=== PATIENT | female | born 1980 ===

== ENCOUNTER 2017-08-20 21:24 | Emergency (ER) | payer SELFPAY ==
[2017-08-20 21:32] VITALS: TEMP 97.7; O2SAT 99
[2017-08-20] MEDS ORDERED: Sodium Chloride 0.9% 1,000 ML IV STA (23:00)
[2017-08-20] MEDS ORDERED: Famotidine 20mg/50ml 20 MG/50 ML BAG IVPB ONE (23:29)
[2017-08-21 00:21] LABS: BASO # 0.1 K/uL (0.0-0.2); BASO % 0.7 % (0.0-2.0); EOS # 0.2 K/uL (0.0-0.7); EOS % 1.6 % (0.0-4.0); HEMOGLOBIN 12.6 g/dL (12.0-16.0); LYMPH # 3.5 K/uL (1.0-4.3); LYMPH % 35.1 % (20.0-40.0); MEAN CELL VOLUME 86.6 fl (81.0-99.0); MEAN CORPUSCULAR HEMOGLOBIN 28.6 pg (27.0-31.0); MEAN PLATELET VOLUME 8.7 fl (7.2-11.7); MONO # 0.8 K/uL (0.0-0.8); MONO % 7.6 % (0.0-10.0); NEUT # 5.5 K/uL (1.8-7.0); RBC 4.42 Mil/uL (3.80-5.20); RED CELL DISTRIBUTION WIDTH 14.2 % (11.5-14.5); WHITE BLOOD COUNT 9.9 K/uL (4.8-10.8)
[2017-08-21 00:25] LABS: ALBUMIN 3.8 g/dL (3.5-5.0); ALT/SGPT 35 U/L (9-52); AST/SGOT 23 U/L (14-36); BLOOD UREA NITROGEN 9 mg/dl (7-17); CALCIUM 9.1 mg/dL (8.4-10.2); GFR AFRICAN-AMERICAN > 60; GFR NON-AFRICAN AMERICAN > 60; LIPASE 108 U/L (23-300)
--- NOTE | 2017-08-21 01:20 | ED PDOC ---
HPI: Abdomen Chief Complaint (Provider): Abdominal Pain History Per: Patient History/Exam Limitations: no limitations Onset/Duration Of Symptoms: Days (x2 weeks) Current Symptoms Are (Timing): Still Present <Delmer Hedrick - Last Filed: 08/21/17 01:17> <Vanita Frazier PA-C - Last Filed: 08/21/17 01:55> Time Seen by Provider: 08/20/17 22:22 Chief Complaint (Nursing): Abdominal Pain Additional Complaint(s): 37 y/o female with no significant PMHx presenting for evaluation of abdominal pain x2 weeks. Patient states shes had gastritis for 2 weeks and describes it as epigastric abdominal pain and a feeling of gas in her stomach. Patient reports she did a home test 2 weeks ago which was positive. She states she hasnt seen an OBGYN regarding her and has received no care. Patient admits to nausea, but denies any vomiting, urinary symptoms, diarrhea, fever, or vaginal bleeding. (Delmer Hedrick) Past Medical History Reviewed: Historical Data, Nursing Documentation, Vital Signs - Medical History PMH: No Chronic Diseases Denies: Chronic Kidney Disease - Surgical History Surgical History: - Family History Family History: States: Unknown Family Hx - Social History Current smoker - smoking cessation education provided: No Alcohol: None Drugs: Denies <Delmer Hedrick - Last Filed: 08/21/17 01:17> <Vanita Frazier PA-C - Last Filed: 08/21/17 01:55> Vital Signs: Last Vital Signs Temp 97.7 F 08/20/17 21:30 Pulse 102 H 08/20/17 21:30 Resp 20 08/20/17 21:30 BP 120/76 08/20/17 21:30 Pulse Ox 99 08/21/17 01:23 - Home Medications Home Medications: Ambulatory Orders Medication Instructions Recorded Ibuprofen [Motrin] 600 mg PO Q6 PRN #20 tab 11/26/13 Ondansetron Hydrochloride 4 mg PO Q6 PRN #12 tab 11/26/13 Famotidine [Pepcid] 40 mg PO DAILY #20 tablet 08/21/17 Nitrofurantoin Macrocrystals 100 mg PO BID #20 cap 08/21/17 [Macrobid] - Allergies Allergies/Adverse Reactions: Allergies Allergy/AdvReac Type Severity Reaction Status Date / Time No Known Allergies Allergy Verified 08/20/17 21:30 Review of Systems ROS Statement: Except As Marked, All Systems Reviewed And Found Negative Constitutional: Negative for: Fever Gastrointestinal: Positive for: Nausea, Abdominal Pain. Negative for: Vomiting , Diarrhea Genitourinary Female: Negative for: Dysuria, Frequency, Incontinence, Vaginal Discharge, Vaginal Bleeding <Delmer Hedrick - Last Filed: 08/21/17 01:17> Physical Exam - Reviewed Nursing Documentation Reviewed: Yes Vital Signs Reviewed: Yes <Delmer Hedrick - Last Filed: 08/21/17 01:17> <Vanita Frazier PA-C - Last Filed: 08/21/17 01:55> - Physical Exam Comments: GENERAL APPEARANCE: Patient is awake, alert, oriented x 3, in no acute distress. SKIN: Warm, dry; (-) cyanosis. EYES: (-) conjunctival pallor, (-) scleral icterus. ENMT: Mucous membranes moist. NECK: (-) tenderness, (-) stiffness, (-) lymphadenopathy. CHEST AND RESPIRATORY: (-) rales, (-) rhonchi, (-) wheezes; breath sounds equal bilaterally. HEART AND CARDIOVASCULAR: (-) irregularity; (-) murmur, (-) gallop. ABDOMEN AND GI: (-) distention. Bowel sounds active; (+) tenderness in epigastric and superpubic regions. (-) guarding, (-) rebound, (-) palpable masses, (-) CVA tenderness. EXTREMITIES: (-) deformity, (-) edema, (+) distal pulses. NEURO AND PSYCH: Mental status as above; (-) focal findings. (Delmer Hedrick) - Laboratory Results Result Diagrams: 08/20/17 23:50 08/20/17 23:50 - ECG O2 Sat by Pulse Oximetry: 99 (RA) Pulse Ox Interpretation: Normal <Delmer Hedrick - Last Filed: 08/21/17 01:17> - Laboratory Results Result Diagrams: 08/20/17 23:50 08/20/17 23:50 <Vanita Frazier PA-C Last Filed: 08/21/17 01:55> Medical Decision Making <Zahira Hedrickam Fabian - Last Filed: 08/21/17 01:17> <Vanita Frazier PA-C - Last Filed: 08/21/17 01:55> Medical Decision Making: Plan: -Beta-HCG -CMP -Lipase -Urine -Urine dipstick -CBC -1LNS -Pepcid 20mg IVP -Tylenol 650mg PO -IV insertion -US OB Transvaginal -US Abdomen -Reevaluation ----- Scribe Attestation: Documented by Scott Fallon, acting as a scribe for Vanita Frazier PA-C. Provider Scribe Attestation: All medical record entries made by the Scribe were at my direction and personally dictated by me. I have reviewed the chart and agree that the record accurately reflects my personal performance of the history, physical exam, medical decision making, and the department course for this patient. I have also personally directed, reviewed, and agree with the discharge instructions and disposition. (Delmer Hedrick) US abd : FINDINGS: Liver: Unremarkable. No mass. No intrahepatic bile duct dilation. Gallbladder: The gallbladder is contracted. Evaluation for cholelithiasis is limited due to contracted status of the gallbladder. Correlate clinically. If clinically warranted consider repeat examination when the patient is n.p.o. Common bile duct: Measures 4 mm. Pancreas: Unremarkable as visualized. Right kidney: Unremarkable. No hydronephrosis. IMPRESSION: The gallbladder is contracted. Evaluation for cholelithiasis is limited due to contracted status of the gallbladder. Correlate clinically. If clinically warranted consider repeat examination when the patient is n.p.o. Dictated and Authenticated by: Emory Aguilera MD 08/21/2017 12:24 AM Eastern Time ([place] & [place]) US TV : FINDINGS: Gestation: Single intrauterine with fetus corresponding to gestational age of 6 weeks and 1 day. No heart rate is identified at this time. [place]-rump length is 0.7 cm. Yolk sac not visualized. Uterus/cervix: Cervix measures 4 cm. No myometrial mass. Ovaries: Unremarkable. Free fluid: No free fluid. IMPRESSION: Single intrauterine with fetus corresponding to gestational age of 6 weeks and 1 day. No heart rate is identified at this time.Differential diagnosis includes versus very early intrauterine . Advise serial beta HCG levels and follow up pelvic obstetrical ultrasound to assess for viability and exclude an ectopic . Dictated and Authenticated by: Emory Aguilera MD 08/21/2017 12:31 AM Eastern Time ([place] & [place]) (Vanita Frazier PA-C) Disposition <ThaniasaskiaDelmer Fabian - Last Filed: 08/21/17 01:17> - Patient ED Disposition Is Patient to be Admitted: No Counseled Patient/Family Regarding: Studies Performed, Diagnosis, Need For Followup, Rx Given - Disposition Disposition: Routine/Home Disposition Time: 01:30 <Vanita Frazier PA-C - Last Filed: 08/21/17 01:55> - Clinical Impression Clinical Impression: Dyspepsia, Abdominal pain during , UTI (urinary tract infection) - Disposition Referrals: [facility] [Outside] Condition: STABLE Additional Instructions: Thank you for letting us take care of you today. You were treated for dyspepsia , abdominal pain in , UTI. The emergency medical care you received today was directed at your acute symptoms. If you were prescribed any medication , please fill it and take as directed. It may take several days for your symptoms to resolve. Return to the Emergency Department if your symptoms worsen , do not improve, or if you have any other problems. Please call one of the physicians/clinics you have been referred to that are listed on the Patient Visit Information form that is included in your discharge packet. Bring any paperwork you were given at discharge with you along with any medications you are taking to your follow up visit. Our treatment cannot replace ongoing medical care by a primary care provider (PCP) outside of the emergency department. Thank you for allowing the [facility] [employer] team to be part of your care today. If you had a urine culture test done : We will call you regarding any positive results Prescriptions: Famotidine [Pepcid] 40 mg PO DAILY #20 tablet Nitrofurantoin Macrocrystals [Macrobid] 100 mg PO BID #20 cap Instructions: Urinary Tract Infections in Adults, Dyspepsia, Acute Abdomen ( Belly Pain), Adult (DC) Forms: [employer] (Citizen Of [place]) Print Language: [place]
[2017-08-21 02:12] VITALS: BP 116/65; PULSE 80; RESP 17
[2017-08-21 02:28] LABS: SQUAMOUS EPITHIAL 3 /hpf (0-5); URINE BACTERIA RARE (<OCC); URINE BILIRUBIN NEGATIVE (NEGATIVE); URINE BLOOD SMALL (NEGATIVE); URINE CLARITY CLOUDY (Clear); URINE COLOR YELLOW (YELLOW); URINE GLUCOSE (UA) NEG (Normal); URINE LEUKOCYTE ESTERASE LARGE Leu/uL (Negative); URINE PROTEIN NEGATIVE (NEGATIVE); URINE UROBILINOGEN 0.2-1.0 mg/dL (0.2-1.0)
--- NOTE | 2017-08-21 11:44 | US ---
HISTORY: epigastric pain COMPARISON: None. TECHNIQUE: Sonographic evaluation of the right upper quadrant of the abdomen. FINDINGS: LIVER: Measures 14.0 cm in length. Patent portal vein. Portal venous flow: Hepatopetal. Unremarkable echogenicity of the liver parenchyma. No mass. No intrahepatic bile duct dilatation. GALLBLADDER: Contracted. No gallstones. COMMON BILE DUCT: Measures 3.5 mm. No stones. No dilatation. PANCREAS: Obscured by overlying bowel gas. Non diagnostic assessment ofthe pancreas. RIGHT KIDNEY: Measures 4.0 x 9.6 cm in length. Normal echogenicity. No calculus, mass, or hydronephrosis. AORTA: No aneurysmal dilatation. IVC: Unremarkable. OTHER FINDINGS: None . IMPRESSION: No significant or acute findings to account for/ related to the clinical presentation. Concordant findings provided by [facility]
--- NOTE | 2017-08-21 11:55 | US ---
HISTORY: Abdominal pain LMP 06/19/2017. Beta HCG level pending COMPARISON: None available. TECHNIQUE: Standard protocol for this study/examination. FINDINGS: UTERUS: Measures 5.4 x 5.6 x 10.6 cm. Normal in size and appearance. No fibroid or other mass lesion seen. GESTATION: Nonviable intrauterine gestation. [place]-rump length 0.68 cm corresponds to gestational age of 6 weeks 4 days. Gestational sac measurement 1.47 cm corresponds to gestational age 5 weeks 5 days. Cardiac activity is not documented. Yolk sac is not identified. CERVIX: Closed cervix 4 cm. RIGHT OVARY: Measures 1.7 x 1.8 x 2 cm. No solid mass. Normal flow. LEFT OVARY: Measures 1.2 x 1.3 x 2.4 cm. No solid mass. Normal flow. FREE FLUID: No significant free fluid noted. OTHER FINDINGS: None. IMPRESSION: Gestational sac and pole identified. Cardiac activity and yolk sac not identified. Unremarkable adnexa. Concordant results (preliminary interpretation) provided by [facility]. Procedure Completed: 23:39 Preliminary ([facility]) Report: Dictated and Authenticated: 00:31 Final Interpretation: 11:58.
== END 2017-08-21 02:44 | disposition home or self-care (01) ==
LOC: H.ER 21:24
DX: O23.41 Unspecified infection of urinary tract in pregnancy, first trimester (principal); Z3A.01 Less than 8 weeks gestation of pregnancy; K30 Functional dyspepsia
CPT/HCPCS: 76705; 76817; 80053; 81003; 81025; 83690; 84702; 85025; 87086; 96361; 96374; 99283; J7030

== ENCOUNTER 2017-08-24 19:52 | Emergency (ER) | payer SELFPAY ==
[2017-08-24 20:01] VITALS: O2SAT 100
[2017-08-24 23:16] LABS: BASO # 0.1 K/uL (0.0-0.2); BASO % 0.9 % (0.0-2.0); EOS # 0.1 K/uL (0.0-0.7); EOS % 1.1 % (0.0-4.0); HEMOGLOBIN 13.1 g/dL (12.0-16.0); LYMPH # 3.7 K/uL (1.0-4.3); LYMPH % 29.5 % (20.0-40.0); MEAN CELL VOLUME 86.6 fl (81.0-99.0); MEAN CORPUSCULAR HEMOGLOBIN 28.5 pg (27.0-31.0); MEAN CORPUSCULAR HGB CONC 32.9 g/dL (33.0-37.0); MONO # 0.8 K/uL (0.0-0.8); MONO % 6.7 % (0.0-10.0); NEUT # 7.8 K/uL (1.8-7.0); NEUT % 61.8 % (50.0-75.0); RBC 4.58 Mil/uL (3.80-5.20); RED CELL DISTRIBUTION WIDTH 14.2 % (11.5-14.5); WHITE BLOOD COUNT 12.6 K/uL (4.8-10.8)
--- NOTE | 2017-08-24 23:31 | ED PDOC ---
HPI: Female Pain Time Seen by Provider: 08/24/17 21:23 Chief Complaint (Nursing): Female Genitourinary Chief Complaint (Provider): Female Genitourinary History Per: Patient (Female Genitourinary) History/Exam Limitations: no limitations Onset/Duration Of Symptoms: Days (x2) Current Symptoms Are (Timing): Still Present Additional Complaint(s): 37 y/o female with a PMHx of and a history of presents to the ED complaining of vaginal bleeding for about two days and lower abdominal pain for about one week. Patient was last seen here on August 20. Patient reports she has an appointment with her PC ANALYST in [place] next Sunday. Patient is here on a three month vacation. PMD: None Provided : 3 Para: 2 Past Medical History Reviewed: Historical Data, Nursing Documentation, Vital Signs Vital Signs: Last Vital Signs Temp 98.1 F 08/24/17 19:59 Pulse 105 H 08/24/17 19:59 Resp 20 08/24/17 19:59 BP 129/86 08/24/17 19:59 Pulse Ox 100 08/24/17 19:59 - Medical History PMH: No Chronic Diseases Denies: Chronic Kidney Disease - Surgical History Surgical History: - Family History Family History: States: Unknown Family Hx - Social History Current smoker - smoking cessation education provided: No Alcohol: None Drugs: Denies - Home Medications Home Medications: Ambulatory Orders Medication Instructions Recorded Ibuprofen [Motrin] 600 mg PO Q6 PRN #20 tab 11/26/13 Ondansetron Hydrochloride 4 mg PO Q6 PRN #12 tab 11/26/13 Famotidine [Pepcid] 40 mg PO DAILY #20 tablet 08/21/17 Nitrofurantoin Macrocrystals 100 mg PO BID #20 cap 08/21/17 [Macrobid] - Allergies Allergies/Adverse Reactions: Allergies Allergy/AdvReac Type Severity Reaction Status Date / Time No Known Allergies Allergy Verified 08/24/17 19:59 Review of Systems ROS Statement: Except As Marked, All Systems Reviewed And Found Negative Gastrointestinal: Positive for: Abdominal Pain (lower) Genitourinary Female: Positive for: Vaginal Bleeding Physical Exam - Reviewed Nursing Documentation Reviewed: Yes Vital Signs Reviewed: Yes - Physical Exam Appears: Positive for: No Acute Distress Head Exam: Positive for: ATRAUMATIC, NORMOCEPHALIC Skin: Positive for: Normal Color, Warm, Dry Eye Exam: Positive for: Normal appearance, EOMI, PERRL Neck: Positive for: Normal Cardiovascular/Chest: Positive for: Regular Rate, Rhythm. Negative for: Murmur Respiratory: Positive for: Normal Breath Sounds. Negative for: Respiratory Distress Gastrointestinal/Abdominal: Positive for: Normal Exam, Tenderness (suprapubic tend). Negative for: Guarding, Rebound Extremity: Positive for: Normal ROM Neurologic/Psych: Positive for: Alert, Oriented. Negative for: Motor/Sensory Deficits - Laboratory Results Result Diagrams: 08/24/17 23:09 - ECG O2 Sat by Pulse Oximetry: 100 (RA) Pulse Ox Interpretation: Normal Medical Decision Making Medical Decision Making: Time: 2156 Impression: Vaginal bleeding, , threatened Plan: -- ED Urine -- ED Urine Dipstick -- US OB Limited Time: 2308 Plan: -- ABO/RH Type -- Type and Screen -- Beta-HCG, Quantitative -- CMP -- CBC with differentials -- PTT -- Prothrombin Time Time: 2319 US OB PREG RESULTS FINDINGS: Gestation: No intrauterine gestation is identified. Uterus/cervix: The endometrial stripe is relatively homogeneous and measures 10 mm in thickness. Doppler imaging demonstrates no abnormal vascularity in the endometrial stripe. The cervix appears closed. Ovaries: The ovaries are normal in size and appearance. Doppler imaging demonstrates vascular flow in both ovaries. No adnexal mass is visualized. Free fluid: No pelvic free fluid is visualized. IMPRESSION: No intrauterine gestation is identified, consistent with interval . No evidence of retained products of conception. Thank you for allowing us to participate in the care of your patient. Dictated and Authenticated by: Renetta Espinoza MD 08/24/2017 11:20 PM Eastern Time ([place] & [place]) Scribe Attestation: Documented by Kellee Roberto acting as a scribe for Dr. Cayla Ayala MD. Provider Scribe Attestation: All medical record entries made by the Scribe were at my direction and personally dictated by me. I have reviewed the chart and agree that the record accurately reflects my personal performance of the history, physical exam, medical decision making, and the department course for this patient. I have also personally directed, reviewed, and agree with the discharge instructions and disposition. Disposition - Disposition
[2017-08-24 23:34] LABS: ALB/GLOB RATIO 1.2 (1.0-2.1); ALBUMIN 3.9 g/dL (3.5-5.0); ALT/SGPT 34 U/L (9-52); AST/SGOT 32 U/L (14-36); BLOOD UREA NITROGEN 12 mg/dl (7-17); GFR AFRICAN-AMERICAN > 60; GFR NON-AFRICAN AMERICAN > 60
[2017-08-25 00:01] LABS: PARTIAL THROMBOPLASTIN TIME 23.7 Seconds (25.6-37.1); PROTHROMBIN TIME 11.1 Seconds (9.8-13.1)
[2017-08-25 00:53] VITALS: BP 106/69; PULSE 87; RESP 16; TEMP 97.9
--- NOTE | 2017-08-25 09:38 | US ---
PROCEDURE: OB Pelvic Ultrasound HISTORY: Vag bleeding LMP: 06/19/2017 COMPARISON: Pelvic ultrasound dated 08/20/2017. FINDINGS: UTERUS: Uterus measures 11.2 x 5.9 x 7.0 cm. Normal in size and appearance. Endometrium measures 10 mm. Previously seen intrauterine gestation is no longer present. CERVIX: Measures 4.6 cm. Long and closed. No cervical abnormality seen. RIGHT OVARY: Measures 1.7 x 1.2 x 1.6 cm. No mass lesion. Normal flow. LEFT OVARY: Measures 1.7 x 1.2 x 1.8 cm. No solid mass. Normal flow. FREE FLUID: None. OTHER FINDINGS: None. IMPRESSION: Intrauterine gestation no longer present consistent with intervals/ completed . No evidence of retained products of conception.
== END 2017-08-25 00:52 | disposition home or self-care (01) ==
LOC: H.ER 19:52
DX: O20.0 Threatened abortion (principal)